=== PATIENT | female | born 1940 | race Caucasian/White ===

== ENCOUNTER 2021-12-22 11:49 | Emergency (ER) | payer OTHER ==
[~2021-12-22 11:49] MED LIST: ASPIRIN CHEWABL81 MG PO; ATIVAN0.5 MG PO; CENTRUM ADULTS1 EACH PO; HCTZ25 MG PO; LIPITOR20 MG PO; MAG-OXIDE 400M400 MG PO; NAPROXEN500 MG PO; PHENERGAN12.5 M1 PO; POTASSIUM CHLORIDE PO; PRILOSEC20 MG PO; SYNTHROID75 MCG PO; VITAMIN C1000 MG PO
[2021-12-22 12:55] LABS: BASOPHIL 0.8 % (0-2); EOSINOPHIL 1.1 % (0-7); HCT 39.9 % (37.0-47.0); HGB 13.7 g/dl (12.5-16.0); LYMPHOCYTE 33.9 % (15-48); MCH 31.6 pg (25.0-31.0); MCHC 34.3 g/dL (32.0-36.0); MCV 91.9 fL (78.0-100.0); MONOCYTE 10.4 % (0-12); MPV 10.2 fL (6.0-9.5); NEUTROPHIL 53.4 % (41-80); NRBC 0; PLT 171 K/uL (150-400); RBC 4.34 M/uL (4.20-5.40); RDW 12.6 % (11.5-14.0); WBC 4.7 K/uL (4.0-10.5)
[2021-12-22 13:02] LABS: ALBUMIN 3.7 g/dL (3.4-5.0); BILIRUBIN - TOTAL 0.5 mg/dL (0.2-1.0); BUN/CREAT RATIO (CALC) 12.7 RATIO; CREATININE 0.79 mg/dL (0.51-0.95); GLOBULIN (CALCULATION) 3.7 g/dL; MAGNESIUM 1.8 mg/dL (1.8-2.4); POTASSIUM 3.8 mmol/L (3.5-5.1); TOTAL PROTEIN 7.4 g/dL (6.4-8.2)
[2021-12-22 13:29] LABS: BILIRUBIN NEGATIVE (NEGATIVE); BLOOD TRACE-INTACT Ery/uL (NEGATIVE); CLARITY CLEAR (CLEAR); COLOR YELLOW (YELLOW); GLUCOSE (U) NORMAL (NORMAL); LEUKOCYTES NEGATIVE Leu/uL (NEGATIVE); NITRITE NEGATIVE (NEGATIVE); PROTEIN NEGATIVE (NEGATIVE); UROBILINOGEN 0.2 mg/dL (0.2-1.0); pH 5.5 (5.0-9.0)
== END 2021-12-22 14:34 | disposition home or self-care (01) ==
LOC: FER 11:49
PROVIDERS: Emergency Medicine
DX: I63.20 Cerebral infarction due to unspecified occlusion or stenosis of unspecified precerebral arteries (principal); R29.709 NIHSS score 9; I50.9 Heart failure, unspecified; Z79.82 Long term (current) use of aspirin; Z88.5 Allergy status to narcotic agent; Z88.8 Allergy status to other drugs, medicaments and biological substances; Z88.2 Allergy status to sulfonamides; Z88.1 Allergy status to other antibiotic agents; Z20.822 Contact with and (suspected) exposure to COVID-19; Z28.310 Unvaccinated for COVID-19
CPT/HCPCS: 36415; 70450; 71045; 80053; 81001; 83735; 83880; 84145; 84484; 85025; 85730; 93005; U0002